=== PATIENT | male | born 1965 | race African-American/Black ===

== ENCOUNTER 2022-07-09 09:12 | Day surgery (SDC) | payer OTHER ==
[2022-07-04 13:53] VITALS: BMI 33.5
[2022-07-09 09:43] VITALS: RESP 20
[2022-07-09 12:09] VITALS: TEMP 97.1
[2022-07-09 12:38] VITALS: BP 124/69; PULSE 78
== END 2022-07-09 12:30 | disposition home or self-care (01) ==
LOC: FASU-ENDO 09:12
PROVIDERS: ATTEND Internal Medicine Gastroenterology
PROC: 0DBP8ZX Excision of Rectum, Via Natural or Artificial Opening Endoscopic, Diagnostic (ICD-10-PCS; principal; 2022-07-09 11:35)
DX: Z12.11 Encounter for screening for malignant neoplasm of colon (principal); K63.5 Polyp of colon
CPT/HCPCS: 88305-TC